=== PATIENT | female | born 1975 | race Caucasian/White ===

== ENCOUNTER 2019-05-12 11:07 | Outpatient (CLI) | payer OTHER ==
--- NOTE | 2019-05-12 12:22 | ULT ---
Pelvic ultrasound: 05/12/2019 COMPARISON: None HISTORY: Pelvic pain TECHNIQUE: Multiplanar grayscale sonographic imaging of the pelvis is obtained with transabdominal an d endovaginal imaging. The ovaries are assessed with color flow and spectral analysis FINDINGS: The uterus measures 7.4 x 4.1 x 6.0 cm. The endometrial stripe is approximately 9 mm in thi ckness. No discrete uterine mass is identified. There is no significant free fluid seen in the pelvis. The right ovary measures 2.3 x 1.6 x 1.5 cm and the left ovary measures 2.7 x 2.1 x 1.5 cm. The ovaries demonstrate normal blood flow. No evidence for ovarian or adnexal mass identified on eith er side. IMPRESSION: Unremarkable pelvic ultrasound.
== END 2019-05-12 11:08 | disposition home or self-care (01) ==
LOC: SCSULT 11:07
PROVIDERS: ATTEND Family Medicine
DX: R10.2 Pelvic and perineal pain (principal)
CPT/HCPCS: 76856